=== PATIENT | male | born 2000 | race Caucasian/White ===

== ENCOUNTER 2021-05-27 12:27 | Emergency (ER) | payer OTHER ==
[~2021-05-27] VITALS: Ht 180.3 cm; Wt 79.4 kg
[2021-05-27] MEDS ORDERED: PREDNISONE20 MG PO (13:43)
== END 2021-05-27 13:53 | disposition home or self-care (01) ==
LOC: ED 12:27
DX: J02.9 Acute pharyngitis, unspecified (principal); Z88.0 Allergy status to penicillin
CPT/HCPCS: 99282; J7512

== ENCOUNTER 2023-08-03 12:44 | Emergency (ER) | payer OTHER ==
[~2023-08-03] VITALS: Ht 180.3 cm; Wt 79.4 kg
[~2023-08-03 12:44] MED LIST: PREDNISONE20 MG PO
[2023-08-03] MEDS ORDERED: IBLOOD GLUCOSE TEST STRIP 1 EA TEST VI ONE (13:15)
[2023-08-03 13:18] LABS: BASOPHILS 0.4 % (0-2); EOSINOPHILS 0.1 % (0-6); HEMATOCRIT 48.1 % (35.0-50.0); HEMOGLOBIN 16.3 g/dL (12.0-18.0); LYMPHOCYTES 10.3 % (24-44); MCHC 33.8 g/dl (30-36); MCV 85.8 fl (81-99); NEUTROPHILS 83.2 % (39-80); PLATELET COUNT 302 K/uL (140-440)
[2023-08-03 13:36] LABS: ALBUMIN 4.1 g/dL (3.4-5.0); ALBUMIN/GLOBULIN RATIO 1.28 (1.1-2.4); ALCOHOL, MEDICAL <3 ng/dL (<3); ALKALINE PHOSPHATASE 84 U/L (46-116); ALT (SGPT) 22 U/L (14-59); ANION GAP 12.9 (7-21); AST (SGOT) 13 U/L (15-37); BILIRUBIN, TOTAL 0.5 ng/dL (0.2-1.0); BUN/CREATININE RATIO 15.38 (6.0-28.6); CALCIUM 9.1 mg/dL (8.5-10.1); CARBON DIOXIDE 30 mmol/L (21-32); CHLORIDE 103 mmol/L (98-107); CREATININE, SERUM 1.17 mg/dL (0.70-1.30); GLOMERULAR FILTRATION RATE,EST 89 mL/min (>60); POTASSIUM 3.9 mmol/L (3.5-5.1); PROTEIN, TOTAL 7.3 g/dL (6.4-8.2); UREA NITROGEN 18 mg/dL (7-18)
[2023-08-03 14:13] LABS: BILIRUBIN, URINE NEGATIVE (negative); BLOOD/HGB, URINE NEGATIVE (Negative); KETONE, URINE SMALL (Negative); LEUK ESTERASE, URINE NEGATIVE (negative); NITRITE, URINE NEGATIVE (negative)
[2023-08-03] MEDS ORDERED: droPERidol 5 MG/2 ML VIAL IV ONE (14:15)
[2023-08-03] MEDS ORDERED: SODIUM CHLORIDE 0.9% 1,000 ML IV PRN (14:15)
[2023-08-03 14:26] LABS: AMPHETAMINES, URINE POSITIVE (NEGATIVE); BARBITURATES, URINE NEGATIVE (NEGATIVE); BENZODIAZEPINE, URINE NEGATIVE (NEGATIVE); BUPRENORPHINE, URINE NEGATIVE (NEGATIVE); CANNABINOID, URINE POSITIVE (NEGATIVE); COCAINE, URINE NEGATIVE (NEGATIVE); ECSTASY, URINE NEGATIVE (NEGATIVE); FENTANYL, URINE POSITIVE (NEGATIVE); METHADONE, URINE NEGATIVE (NEGATIVE); OPIATES, URINE NEGATIVE (NEGATIVE); OXYCODONE, URINE NEGATIVE (NEGATIVE); PHENCYCLIDINE, URINE NEGATIVE (NEGATIVE)
[2023-08-03 19:54] VITALS: BP 123/83
--- NOTE | 2023-08-03 22:40 | EKG ---
[facility] [address] [facility] [place] [address] Signed Normal sinus rhythm Rightward axis Cannot rule out Inferior infarct , age undetermined Abnormal ECG No previous ECGs available Confirmed by Court Arnett MD () on 08/03/2023 10:39:59 PM Electronically Signed By: COURT ARNETT MD 08/03/232239 PATIENT NAME: KD SALGADO KALEB Electrocardiogram DATE OF : 89 PHYSICIAN: COURT ARNETT MD REPORT #: [id number] REPORT IS CONFIDENTIAL AND NOT TO BE RELEASED WITHOUT AUTHORIZATION
== END 2023-08-03 19:56 | disposition home or self-care (01) ==
LOC: ED 12:44
PROVIDERS: Emergency Medicine
DX: F11.20 Opioid dependence, uncomplicated (principal); Z88.0 Allergy status to penicillin
CPT/HCPCS: 36415; 71045; 80053; 80307; 81003; 84484; 85025; 93005; 93010; 96361; 96374; 99284-25; G0480; J1790; J7030

== ENCOUNTER 2024-02-01 16:27 | Emergency (ER) | payer OTHER ==
[~2024-02-01] VITALS: Ht 180.3 cm; Wt 74.6 kg
[2024-02-01 17:03] LABS: BASOPHILS 0.5 % (0-2); EOSINOPHILS 5.9 % (0-6); HEMOGLOBIN 15.8 g/dL (12.0-18.0); LYMPHOCYTES 24.4 % (24-44); MCH 29.1 (27-36); MCHC 33.6 g/dl (30-36); MCV 86.7 fl (81-99); NEUTROPHILS 60.2 % (39-80); PLATELET COUNT 215 K/uL (140-440); RBC 5.42 M/ul (4.3-5.7); RDW 13.9 (10.5-15.0)
[2024-02-01 17:11] LABS: ALBUMIN 4.1 g/dL (3.4-5.0); ALBUMIN/GLOBULIN RATIO 1.24 (1.1-2.4); BILIRUBIN, TOTAL 0.4 ng/dL (0.2-1.0); BUN/CREATININE RATIO 12.93 (6.0-28.6); CALCIUM 9.1 mg/dL (8.5-10.1); CREATININE, SERUM 1.16 mg/dL (0.70-1.30); PROTEIN, TOTAL 7.4 g/dL (6.4-8.2)
[2024-02-01 17:21] LABS: BILIRUBIN, URINE NEGATIVE (negative); BLOOD/HGB, URINE NEGATIVE (Negative); KETONE, URINE NEGATIVE (Negative); LEUK ESTERASE, URINE NEGATIVE (negative); NITRITE, URINE NEGATIVE (negative); PH, URINE 6.5 (5-7)
[2024-02-01 17:32] LABS: AMPHETAMINES, URINE POSITIVE (NEGATIVE); BARBITURATES, URINE NEGATIVE (NEGATIVE); BENZODIAZEPINE, URINE NEGATIVE (NEGATIVE); BUPRENORPHINE, URINE NEGATIVE (NEGATIVE); CANNABINOID, URINE POSITIVE (NEGATIVE); COCAINE, URINE NEGATIVE (NEGATIVE); ECSTASY, URINE POSITIVE (NEGATIVE); FENTANYL, URINE POSITIVE (NEGATIVE); METHADONE, URINE NEGATIVE (NEGATIVE); OPIATES, URINE NEGATIVE (NEGATIVE); OXYCODONE, URINE NEGATIVE (NEGATIVE); PHENCYCLIDINE, URINE NEGATIVE (NEGATIVE)
[2024-02-01] MEDS ORDERED: NARCAN4 MG NAS (18:18)
[2024-02-01 19:16] VITALS: BP 121/84
== END 2024-02-01 19:05 | disposition home or self-care (01) ==
LOC: ED 16:27
PROVIDERS: Emergency Medicine
DX: F11.90 Opioid use, unspecified, uncomplicated (principal); F15.90 Other stimulant use, unspecified, uncomplicated; F12.90 Cannabis use, unspecified, uncomplicated; Z88.0 Allergy status to penicillin
CPT/HCPCS: 36415; 80053; 80307; 81003; 85025; 99285; G0480